=== PATIENT | female | born 1950 | race Caucasian/White ===

== ENCOUNTER 2020-05-19 22:19 | Emergency (ER) | payer MEDICARE ==
[~2020-05-19] VITALS: Ht 160 cm; Wt 68.6 kg
--- NOTE | 2020-05-19 22:41 | PHYS DOC ---
General Adult EDM: Chief Complaint: NAUSEA/VOMITING/DIARRHA HPI: HPI: Lyly Dhillon is a 7-year-old female who presents via EMS with nausea and vomiting for approximately 2-1/2 hours. She states that her daily routine was normal for her including her dinner tonight of oatmeal with berries and toast. She had 2 glasses of wine tonight as well. She states that approximately 1/2 hours prior to arrival she began to feel nauseous and have an aching epigastric pain. She took her home dose of Zofran approximately 30 minutes prior to arrival, and is currently beginning to find relief. Upon EMS arrival, she affirms having approximately 3 episodes of vomiting her gastric contents including her dinner. EMS reports benign vital signs and EKG findings. The patient affirms a history of "esophagus erosion", likely GERD, diagnosed via EGD approximately 1 year ago. She states that these episodes happen about once every 2 years. During past ep isodes she has found relief with a GI cocktail. Review of Systems: Review of Systems: Constitutional: Denies fever or chills Eyes: Denies redness or eye pain HENT: Denies nasal congestion or sore throat Respiratory: Denies cough or shortness of breath Cardiovascular: Denies chest pain or palpitations GI: Affirms abdominal pain, nausea, and vomiting : Denies dysuria or hematuria Musculoskeletal: Denies back pain or joint pain Integument: Denies rash or skin lesions Neurologic: Denies headache, focal weakness or sensory changes Complete systems were reviewed and found to be within normal limits, except as documented in this note. Current Medications: Current Medications Medications (Trade) Dose Ordered Sig/[facility] Start Time Stop Time Status Last Admin Dose Admin Multi-Ingredient Mouthwash/Gargle (Gi Cocktail) 20 ml 1X ONCE 05/19/20 22:30 05/19/20 22:31 UNV Allergies: Allergies: Allergies Coded Allergies Type Severity Reaction Last Updated Verified Cephalosporins Allergy Unknown 05/19/20 Yes Fish Containing Products Allergy Unknown 05/19/20 Yes gluten Allergy Unknown 05/19/20 Yes sulfamethoxazole Allergy Unknown 05/19/20 Yes trimethoprim Allergy Unknown 05/19/20 Yes Physical Exam: PE: Constitutional: Well developed, well nourished, no acute distress, non-toxic appearance HENT: Normocephalic, atraumatic, moist mucous membranes Eyes: PERRL, EOMI, conjunctiva normal, no discharge Neck: Normal range of motion, no tenderness, supple Lungs & Thorax: No respiratory distress, equal chest rise and fall Abdomen: Soft, minimal tenderness to palpation of the epigastric region Skin: Warm, dry, no erythema, no rash Back: No tenderness, no CVA tenderness Extremities: No tenderness, ROM intact, no edema Neurologic: Alert and oriented X 3, normal motor function, normal sensory function, no focal deficits noted Psychologic: Affect normal, judgment normal Course & Med Decision Making: Course & Med Decision Making Patient presents with nausea and abdominal pain is present above. Patient's history and physical exam findings are consistent with acute on chronic GERD. Acute coronary syndrome is ruled out given reported normal EKG findings by EMS, lack of significant chest pain and diaphoresis, and lack of risk factors. Patient's nausea is seemingly well controlled on home Zofran upon arrival. She was given a GI cocktail, after which she found improvement. P.o. challenge with water due to patient's glucose intolerance was successful. Patient is medically stable for discharge. Appear Disclaimer: Appear Disclaimer: This electronic medical record was generated, in whole or in part, using a voice recognition dictation system. Departure Departure Impression: Primary Impression: GERD (gastroesophageal reflux disease) Qualified Codes: K21.9 - Gastro-esophageal reflux disease without esophagitis Additional Impression: Nausea & vomiting Qualified Codes: R11.2 - Nausea with vomiting, unspecified Disposition: 01 [place] HOME SELF CARE/HOMELESS Condition: STABLE Referrals: CARLOS SNYDER MD Patient Instructions: Gastritis, Adult, [id number], Nausea and Vomiting, [id number] Scripts Pantoprazole Sodium (PROTONIX ) 40 Mg Tablet. 40 MG PO DAILYAC for GERD, #14 TAB Prov: RENE MATT DO 05/19/20 RENE MATT DO May 19, 2020 22:41
[2020-05-19] MEDS ORDERED: LIDO:MAALOX 1:1 20 ML SINGLE DOSE. PO ONE (23:00)
[2020-05-19] MEDS ORDERED: ONDANSETRON ODT 4 MG TAB.RAPDIS. PO ONE (23:30)
[2020-05-19] MEDS ORDERED: PANT40TA77 PO (23:49)
[2020-05-20] VITALS: BP 149/67
[2020-05-20] MEDS ORDERED: PANTOPRAZOLE 40 MG TABLET.DR. PO ONE (00:15)
== END 2020-05-20 00:14 | disposition home or self-care (01) ==
LOC: ER 22:19
DX: K21.9 Gastro-esophageal reflux disease without esophagitis (principal); R11.2 Nausea with vomiting, unspecified; Z88.1 Allergy status to other antibiotic agents; Z88.2 Allergy status to sulfonamides; Z91.013 Allergy to seafood; Z88.8 Allergy status to other drugs, medicaments and biological substances
CPT/HCPCS: 99284